=== PATIENT | male | born 1970 | race Hispanic/Latino ===

== ENCOUNTER 2020-07-11 08:18 | Emergency (ER) | payer OTHER ==
[2020-07-11] MEDS ORDERED: DERMABOND SKIN ADHESIVE TOP ONE (08:50)
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
[2020-07-11 10:31] VITALS: BP 145/86; O2SAT 99
== END 2020-07-11 10:27 | disposition home or self-care (01) ==
LOC: ER 08:18
PROC: 0JQ10ZZ Repair Face Subcutaneous Tissue and Fascia, Open Approach (ICD-10-PCS; principal; 2020-07-11)
DX: S22.41XA Multiple fractures of ribs, right side, initial encounter for closed fracture (principal); S01.81XA Laceration without foreign body of other part of head, initial encounter; R07.89 Other chest pain; V49.40XA Driver injured in collision with unspecified motor vehicles in traffic accident, initial encounter
CPT/HCPCS: 70450; 71250; 72125; 99284